=== PATIENT | female | born 1955 | race Caucasian/White ===

== ENCOUNTER 2017-11-28 05:26 | Emergency (ER) | payer MEDICARE, OTHER ==
[~2017-11-28] VITALS: Ht 157.5 cm; Wt 77.3 kg
[2017-11-28] MEDS ORDERED: ondansetron 4mg rapidly disintigrating tab PO ONE (07:00)
[2017-11-28] MEDS ORDERED: benzonatate 100mg capsule PO ONE (07:00)
[2017-11-28] MEDS ORDERED: ipratropium/albuterol 3ml nebule NEB ONE (07:00)
[2017-11-28] MEDS ORDERED: BENZ-16 PO (08:40)
[2017-11-28] MEDS ORDERED: ALBU6.7H INH (08:40)
[2017-11-28] MEDS ORDERED: dexamethasone 4mg tablet PO ONE (08:40)
[2017-11-28 09:02] VITALS: BP 139/92
== END 2017-11-28 09:04 | disposition home or self-care (01) ==
LOC: ER 05:27
DX: J06.9 Acute upper respiratory infection, unspecified (principal); Z88.8 Allergy status to other drugs, medicaments and biological substances
CPT/HCPCS: 71046; 94640; 94760; 99284; J8540

== ENCOUNTER 2017-11-30 05:24 | Inpatient (IN) | payer MEDICARE, OTHER ==
[~2017-11-30] VITALS: Ht 157.5 cm; Wt 79.0 kg
[~2017-11-30 05:24] MED LIST: ALBU6.7H INH; BENZ-16 PO
[2017-11-30] MEDS ORDERED: methylPREDNISolone sod succ 125mg/2ml vial IV ONE ×2 (05:35→06:55)
[2017-11-30] MEDS ORDERED: ipratropium/albuterol 3ml nebule NEB ONE (05:35)
[2017-11-30] MEDS ORDERED: normal saline 1000ML IV soln IVB ONE (05:35)
[2017-11-30] MEDS ORDERED: normal saline 1000ml 1,000 ML IV ONE (05:45)
[2017-11-30] MEDS ORDERED: ketorolac trometh. 30mg/ml inj. IV ONE (05:45)
[2017-11-30] MEDS ORDERED: LORA10TA65 PO (06:01)
[2017-11-30] MEDS ORDERED: CHOL400T14 PO (06:01)
[2017-11-30] MEDS ORDERED: BACL20TA PO (06:01)
[2017-11-30] MEDS ORDERED: DULO60CA45 PO (06:01)
[2017-11-30] MEDS ORDERED: OCRE300V (06:01)
[2017-11-30] MEDS ORDERED: AMPH10TA23 PO (06:01)
[2017-11-30] MEDS ORDERED: APIX5TAB3 PO (06:01)
[2017-11-30] MEDS ORDERED: HYDR-3566 PO (06:01)
[2017-11-30] MEDS ORDERED: ASPI-1265 PO (06:01)
[2017-11-30] MEDS ORDERED: FIORINAL PO ×2 (06:01)
[2017-11-30 06:25] LABS: BASOPHILS % (AUTO) 0.2 % (0-1); EOSINOPHILS # (AUTO) 0.1 X10'3 (0-0.9); EOSINOPHILS % (AUTO) 0.7 % (0-6); HEMATOCRIT 41.7 % (35.0-45.0); HEMOGLOBIN 13.8 g/dl (12.0-16.0); LYMPHOCYTES # (AUTO) 1.5 X10'3 (1.1-4.8); LYMPHOCYTES % (AUTO) 13.6 % (21-51); MEAN CORPUSCULAR HEMOGLOBIN 28.4 PG (27.0-31.0); MEAN CORPUSCULAR HGB CONC 33.1 % (33.0-36.5); MEAN CORPUSCULAR VOLUME 85.9 FL (78-98); MEAN PLATELET VOLUME 8.7 FL (7.4-10.4); MONOCYTES # (AUTO) 0.5 X10'3 (0-0.9); MONOCYTES % (AUTO) 4.8 % (2-12); NEUTROPHILS % (AUTO) 80.7 % (42-75); PLATELET COUNT 249 X10'3 (140-440); RED BLOOD COUNT 4.86 X10'6 (4.20-5.60); RED CELL DISTRIBUTION WIDTH 15.8 % (11.5-14.5); WHITE BLOOD COUNT 11.2 X10'3 (4.5-11.0)
[2017-11-30 06:37] LABS: PARTIAL THROMBOPLASTIN TIME 27 SECONDS (22-32)
[2017-11-30 06:51] LABS: ALANINE AMINOTRANSFERASE 22 U/L (12-78); ALBUMIN 3.2 G/DL (3.4-5.0); ALBUMIN/GLOBULIN RATIO 0.9 (1.1-1.5); ALKALINE PHOSPHATASE 116 IU/L (46-116); ANION GAP 8 (8-16); ASPARTATE AMINO TRANSFERASE 16 U/L (10-37); BILIRUBIN,TOTAL 0.2 MG/DL (0.1-1.0); BLOOD UREA NITROGEN 11 MG/DL (7-18); BUN/CREATININE RATIO 13.8 (6.6-38.0); CALCIUM 8.6 MG/DL (8.5-10.1); CHLORIDE 101 MMOL/L (99-107); GLUCOSE 130 MG/DL (70-104); POTASSIUM 3.9 MMOL/L (3.5-5.1); SODIUM 136 MMOL/L (135-145); TOTAL CARBON DIOXIDE 27.3 MMOL/L (24-32); TOTAL PROTEIN 6.7 G/DL (6.4-8.2); eGFR 73 ML/MIN
[2017-11-30] MEDS ORDERED: albuterol 2.5 MG/3 ML nebule NEB ONE (06:55)
[2017-11-30] MEDS ORDERED: bisacodyl 10mg suppository rectal RC PRN (11:30)
[2017-11-30] MEDS ORDERED: magnesium 2GM in 50ml NS 50 ML IV PRN (11:30)
[2017-11-30] MEDS ORDERED: ondansetron/PF 4mg/2ml inj IV PRN (11:30)
[2017-11-30] MEDS ORDERED: potassium Cl 20 mEq SR tablet PO PRN ×2 (11:30)
[2017-11-30] MEDS ORDERED: magnesium Cl slow-release 64mg tablet PO PRN (11:30)
[2017-11-30] MEDS ORDERED: magnesium 4gm in 100ml NS 100 ML IV PRN (11:30)
[2017-11-30] MEDS ORDERED: magnesium hydroxide 30ml (MOM) UD suspension PO PRN (11:30)
[2017-11-30] MEDS ORDERED: mag hydrox/Alum hydrox/simeth 30ml oral suspension PO PRN (11:30)
[2017-11-30] MEDS ORDERED: potassium Cl 40MEQ/NS 500ml 500 ML IV PRN ×2 (11:30)
[2017-11-30] MEDS ORDERED: butalbital/aspirin/caffeine (Fiorinal) 50/325/40mg capsule PO PRN (11:45)
[2017-11-30] MEDS ORDERED: guaiFENesin 200 MG/10 ML oral syrup UD cup PO PRN (11:45)
[2017-11-30] MEDS: cefTRIAXone 1g/NS 100ml IVPB 100 ML IV SCH (12:22)
[2017-11-30] MEDS: potassium cl 20mEq in 1/2 NS 1,000 ML IV SCH ×2 (12:29→22:17)
[2017-11-30] MEDS ORDERED: butalbital/acetaminophen/caffeine (Fioricet) tablet PO PRN (12:50)
[2017-11-30] MEDS: dextroamphetamine/amphetamine 10mg tablet PO SCH ×2 (13:00→20:00)
[2017-11-30] MEDS ORDERED: BENZ-38 PO (13:44)
[2017-11-30] MEDS: baclofen 10mg tablet PO SCH ×3 (13:57→22:17)
[2017-11-30] MEDS: duloxetine 30mg CAPSULE.DR PO SCH (13:58)
[2017-11-30] MEDS ORDERED: ACETAMINOPHEN PO SCH (14:00)
[2017-11-30] MEDS ORDERED: HYDROCODONE BIT PO SCH (14:00)
[2017-11-30] MEDS: methylPREDNISolone sod succ 125mg/2ml vial IV SCH ×2 (14:21→20:56)
[2017-11-30] MEDS: ipratropium/albuterol 3ml nebule NEB SCH ×3 (15:40→23:29)
[2017-11-30] MEDS: docusate sod 100mg capsule PO SCH (20:57)
[2017-11-30] MEDS: famotidine 20mg tablet PO SCH (20:58)
[2017-11-30] MEDS: apixaban 5mg tablet PO SCH (20:58)
[2017-11-30 21:15] VITALS: BP 150/65
[2017-12-01] VITALS: BP 133/77
[2017-12-01] MEDS: methylPREDNISolone sod succ 125mg/2ml vial IV SCH ×4 (02:24→16:20)
[2017-12-01] MEDS: ipratropium/albuterol 3ml nebule NEB SCH ×5 (03:44→20:01)
[2017-12-01 06:13] LABS: BASOPHILS % (AUTO) 0.1 % (0-1); EOSINOPHILS # (AUTO) 0.1 X10'3 (0-0.9); EOSINOPHILS % (AUTO) 1.2 % (0-6); HEMATOCRIT 39.7 % (35.0-45.0); HEMOGLOBIN 13.5 g/dl (12.0-16.0); LYMPHOCYTES # (AUTO) 1.5 X10'3 (1.1-4.8); LYMPHOCYTES % (AUTO) 14.8 % (21-51); MEAN CORPUSCULAR HEMOGLOBIN 29.2 PG (27.0-31.0); MEAN CORPUSCULAR HGB CONC 33.9 % (33.0-36.5); MEAN CORPUSCULAR VOLUME 86.1 FL (78-98); MEAN PLATELET VOLUME 8.6 FL (7.4-10.4); MONOCYTES # (AUTO) 0.3 X10'3 (0-0.9); MONOCYTES % (AUTO) 2.6 % (2-12); NEUTROPHILS # (AUTO) 8.4 X10'3 (1.8-7.7); NEUTROPHILS % (AUTO) 81.3 % (42-75); PLATELET COUNT 280 X10'3 (140-440); RED BLOOD COUNT 4.61 X10'6 (4.20-5.60); RED CELL DISTRIBUTION WIDTH 16.2 % (11.5-14.5); WHITE BLOOD COUNT 10.3 X10'3 (4.5-11.0)
[2017-12-01 06:37] LABS: ALANINE AMINOTRANSFERASE 21 U/L (12-78); ALBUMIN 3.1 G/DL (3.4-5.0); ALBUMIN/GLOBULIN RATIO 0.8 (1.1-1.5); ALKALINE PHOSPHATASE 116 IU/L (46-116); ANION GAP 8 (8-16); ASPARTATE AMINO TRANSFERASE 15 U/L (10-37); BILIRUBIN,TOTAL 0.2 MG/DL (0.1-1.0); BLOOD UREA NITROGEN 10 MG/DL (7-18); BUN/CREATININE RATIO 11.5 (6.6-38.0); CHLORIDE 108 MMOL/L (99-107); CREATININE 0.87 MG/DL (0.40-0.90); GLUCOSE 144 MG/DL (70-104); MAGNESIUM 2.2 MG/DL (1.5-2.4); POTASSIUM 3.9 MMOL/L (3.5-5.1); SODIUM 145 MMOL/L (135-145); TOTAL CARBON DIOXIDE 28.9 MMOL/L (24-32); TOTAL PROTEIN 6.9 G/DL (6.4-8.2); eGFR 66 ML/MIN
[2017-12-01] MEDS: potassium cl 20mEq in 1/2 NS 1,000 ML IV SCH ×2 (07:26→13:45)
[2017-12-01] MEDS: dextroamphetamine/amphetamine 10mg tablet PO SCH ×2 (08:00→20:00)
[2017-12-01] MEDS: K and/or MAG REPLACEMENT MC SCH (08:00)
[2017-12-01] MEDS: cefTRIAXone 1g/NS 100ml IVPB 100 ML IV SCH (08:05)
[2017-12-01] MEDS: loratadine 10mg tablet PO SCH (08:09)
[2017-12-01] MEDS: aspirin 81mg tab.chew PO SCH (08:09)
[2017-12-01] MEDS: duloxetine 30mg CAPSULE.DR PO SCH (08:10)
[2017-12-01] MEDS: docusate sod 100mg capsule PO SCH ×2 (08:10→20:43)
[2017-12-01] MEDS: apixaban 5mg tablet PO SCH ×2 (08:10→20:41)
[2017-12-01] MEDS: baclofen 10mg tablet PO SCH ×4 (08:10→21:00)
[2017-12-01] MEDS: famotidine 20mg tablet PO SCH ×2 (08:11→20:43)
[2017-12-01] MEDS: vitamin D (cholecalciferol) 1,000 unit tablet PO SCH (08:13)
[2017-12-01 08:28] VITALS: BP 139/79
[2017-12-01 11:23] VITALS: BP 131/64
[2017-12-01 20:00] VITALS: BP 142/82
[2017-12-01] MEDS ORDERED: HYDROcodone/acetaminophen 10/325mg tab PO PRN (20:30)
[2017-12-02] VITALS: BP 138/76
[2017-12-02] MEDS: ipratropium/albuterol 3ml nebule NEB SCH ×7 (00:05→23:31)
[2017-12-02] MEDS: methylPREDNISolone sod succ 125mg/2ml vial IV SCH ×3 (01:15→17:13)
[2017-12-02 05:57] LABS: ALANINE AMINOTRANSFERASE 23 U/L (12-78); ALBUMIN 2.9 G/DL (3.4-5.0); ALBUMIN/GLOBULIN RATIO 0.8 (1.1-1.5); ALKALINE PHOSPHATASE 102 IU/L (46-116); ANION GAP 8 (8-16); ASPARTATE AMINO TRANSFERASE 13 U/L (10-37); BILIRUBIN,TOTAL 0.1 MG/DL (0.1-1.0); BLOOD UREA NITROGEN 18 MG/DL (7-18); BUN/CREATININE RATIO 24.3 (6.6-38.0); CALCIUM 8.9 MG/DL (8.5-10.1); CHLORIDE 107 MMOL/L (99-107); CREATININE 0.74 MG/DL (0.40-0.90); GLUCOSE 129 MG/DL (70-104); MAGNESIUM 2.2 MG/DL (1.5-2.4); POTASSIUM 4.5 MMOL/L (3.5-5.1); SODIUM 143 MMOL/L (135-145); TOTAL CARBON DIOXIDE 28.4 MMOL/L (24-32); TOTAL PROTEIN 6.4 G/DL (6.4-8.2); eGFR 80 ML/MIN
[2017-12-02] MEDS: potassium cl 20mEq in 1/2 NS 1,000 ML IV SCH ×3 (07:10→23:26)
[2017-12-02 07:41] VITALS: BP 141/79
[2017-12-02] MEDS ORDERED: CefTRIAXone/D5W-Rocephin 1gm 50 ML IV SCH (08:00)
[2017-12-02] MEDS: K and/or MAG REPLACEMENT MC SCH (08:00)
[2017-12-02] MEDS: duloxetine 30mg CAPSULE.DR PO SCH (09:08)
[2017-12-02] MEDS: loratadine 10mg tablet PO SCH (09:08)
[2017-12-02] MEDS: aspirin 81mg tab.chew PO SCH (09:09)
[2017-12-02] MEDS: docusate sod 100mg capsule PO SCH ×2 (09:09→20:46)
[2017-12-02] MEDS: apixaban 5mg tablet PO SCH ×2 (09:10→20:46)
[2017-12-02] MEDS: dextroamphetamine/amphetamine 10mg tablet PO SCH ×2 (09:10→20:00)
[2017-12-02] MEDS: famotidine 20mg tablet PO SCH ×2 (09:10→20:47)
[2017-12-02] MEDS: baclofen 10mg tablet PO SCH ×4 (09:11→20:46)
[2017-12-02] MEDS: vitamin D (cholecalciferol) 1,000 unit tablet PO SCH (09:13)
[2017-12-02 11:00] VITALS: BP 153/83
[2017-12-02 20:00] VITALS: BP 147/84
[2017-12-02] MEDS: lactobacillus rhamnosus 10,000 MMU CELLS/CAPSULE PO SCH (20:45)
[2017-12-03] VITALS: BP 145/85
[2017-12-03] MEDS: methylPREDNISolone sod succ 125mg/2ml vial IV SCH ×3 (00:42→17:02)
[2017-12-03] MEDS ORDERED: diphenhydrAMINE 25mg capsule PO ONE (01:00)
[2017-12-03] MEDS: ipratropium/albuterol 3ml nebule NEB SCH ×6 (03:00→23:00)
[2017-12-03 06:08] LABS: ALANINE AMINOTRANSFERASE 50 U/L (12-78); ALBUMIN 2.9 G/DL (3.4-5.0); ALBUMIN/GLOBULIN RATIO 0.9 (1.1-1.5); ALKALINE PHOSPHATASE 100 IU/L (46-116); ANION GAP 6 (8-16); ASPARTATE AMINO TRANSFERASE 24 U/L (10-37); BILIRUBIN,TOTAL 0.2 MG/DL (0.1-1.0); BLOOD UREA NITROGEN 15 MG/DL (7-18); BUN/CREATININE RATIO 20.8 (6.6-38.0); CALCIUM 8.1 MG/DL (8.5-10.1); CHLORIDE 108 MMOL/L (99-107); CREATININE 0.72 MG/DL (0.40-0.90); GLUCOSE 136 MG/DL (70-104); MAGNESIUM 2.4 MG/DL (1.5-2.4); POTASSIUM 4.1 MMOL/L (3.5-5.1); SODIUM 144 MMOL/L (135-145); TOTAL CARBON DIOXIDE 29.8 MMOL/L (24-32); TOTAL PROTEIN 6.1 G/DL (6.4-8.2); eGFR 83 ML/MIN
[2017-12-03 07:00] VITALS: BP 168/88
[2017-12-03] MEDS: docusate sod 100mg capsule PO SCH ×2 (08:00→20:00)
[2017-12-03] MEDS: K and/or MAG REPLACEMENT MC SCH (08:00)
[2017-12-03] MEDS: dextroamphetamine/amphetamine 10mg tablet PO SCH ×2 (08:35→20:00)
[2017-12-03] MEDS: vitamin D (cholecalciferol) 1,000 unit tablet PO SCH (08:36)
[2017-12-03] MEDS: baclofen 10mg tablet PO SCH ×4 (08:38→22:25)
[2017-12-03] MEDS: aspirin 81mg tab.chew PO SCH (08:38)
[2017-12-03] MEDS: lactobacillus rhamnosus 10,000 MMU CELLS/CAPSULE PO SCH ×2 (08:39→22:25)
[2017-12-03] MEDS: famotidine 20mg tablet PO SCH ×2 (08:40→22:24)
[2017-12-03] MEDS: pantoprazole 40 MG vial IV SCH (08:41)
[2017-12-03] MEDS: duloxetine 30mg CAPSULE.DR PO SCH (08:41)
[2017-12-03] MEDS: levoFLOXACIN-Levaquin 750MG/D5 150 ML IV SCH (08:42)
[2017-12-03] MEDS: apixaban 5mg tablet PO SCH ×2 (08:48→22:24)
[2017-12-03] MEDS: loratadine 10mg tablet PO SCH (08:54)
[2017-12-03 11:00] VITALS: BP 168/95
[2017-12-03] MEDS: CefTRIAXone inj 1,000 MG in normal saline 100ml IV soln 100 ML IV SCH (11:11)
[2017-12-03] MEDS: potassium cl 20mEq in 1/2 NS 1,000 ML IV SCH (11:12)
[2017-12-03 19:00] VITALS: BP 129/82
[2017-12-04] VITALS: BP 152/86
[2017-12-04] MEDS: methylPREDNISolone sod succ 125mg/2ml vial IV SCH ×3 (01:06→16:58)
[2017-12-04] MEDS: potassium cl 20mEq in 1/2 NS 1,000 ML IV SCH ×2 (01:12→05:26)
[2017-12-04] MEDS: ipratropium/albuterol 3ml nebule NEB SCH ×3 (03:00→11:00)
[2017-12-04 06:28] LABS: ALANINE AMINOTRANSFERASE 46 U/L (12-78); ALBUMIN 3.1 G/DL (3.4-5.0); ALBUMIN/GLOBULIN RATIO 0.9 (1.1-1.5); ALKALINE PHOSPHATASE 106 IU/L (46-116); ANION GAP 9 (8-16); ASPARTATE AMINO TRANSFERASE 18 U/L (10-37); BILIRUBIN,TOTAL 0.2 MG/DL (0.1-1.0); BLOOD UREA NITROGEN 13 MG/DL (7-18); BUN/CREATININE RATIO 19.1 (6.6-38.0); CALCIUM 9.1 MG/DL (8.5-10.1); CHLORIDE 107 MMOL/L (99-107); CREATININE 0.68 MG/DL (0.40-0.90); GLUCOSE 126 MG/DL (70-104); MAGNESIUM 2.5 MG/DL (1.5-2.4); POTASSIUM 4.5 MMOL/L (3.5-5.1); SODIUM 143 MMOL/L (135-145); TOTAL CARBON DIOXIDE 27.5 MMOL/L (24-32); TOTAL PROTEIN 6.6 G/DL (6.4-8.2); eGFR 88 ML/MIN
[2017-12-04 08:00] VITALS: BP 156/87
[2017-12-04] MEDS: K and/or MAG REPLACEMENT MC SCH (08:00)
[2017-12-04] MEDS: levoFLOXACIN-Levaquin 750MG/D5 150 ML IV SCH (08:33)
[2017-12-04] MEDS: vitamin D (cholecalciferol) 1,000 unit tablet PO SCH (08:34)
[2017-12-04] MEDS: dextroamphetamine/amphetamine 10mg tablet PO SCH (08:34)
[2017-12-04] MEDS: duloxetine 30mg CAPSULE.DR PO SCH (08:35)
[2017-12-04] MEDS: baclofen 10mg tablet PO SCH ×3 (08:36→17:00)
[2017-12-04] MEDS: docusate sod 100mg capsule PO SCH (08:36)
[2017-12-04] MEDS: loratadine 10mg tablet PO SCH (08:36)
[2017-12-04] MEDS: lactobacillus rhamnosus 10,000 MMU CELLS/CAPSULE PO SCH (08:37)
[2017-12-04] MEDS: aspirin 81mg tab.chew PO SCH (08:37)
[2017-12-04] MEDS: apixaban 5mg tablet PO SCH (08:37)
[2017-12-04] MEDS: famotidine 20mg tablet PO SCH (08:37)
[2017-12-04] MEDS: pantoprazole 40 MG vial IV SCH (08:40)
[2017-12-04] MEDS: CefTRIAXone inj 1,000 MG in normal saline 100ml IV soln 100 ML IV SCH (09:54)
[2017-12-04 11:00] VITALS: BP 140/82
[2017-12-04] MEDS ORDERED: iohexol 350MG/ML 100ml bottle IV ONE ×2 (14:40→15:18)
== END 2017-12-04 19:30 | disposition home or self-care (01) | DRG 193 ==
LOC: ER 05:25 → ED HOLD 09:13 → UNDOADMIN 09:13 → EDBEDREQTM 20:29 → MED 3N 21:00
PROVIDERS: ADMIT Internal Medicine; ATTEND Obstetrics & Gynecology Obstetrics
PROC: B32T1ZZ Computerized Tomography (CT Scan) of Left Pulmonary Artery using Low Osmolar Contrast (ICD-10-PCS; principal; 2017-12-04)
PROC: B3201ZZ Computerized Tomography (CT Scan) of Thoracic Aorta using Low Osmolar Contrast (ICD-10-PCS; 2017-12-04)
PROC: B32S1ZZ Computerized Tomography (CT Scan) of Right Pulmonary Artery using Low Osmolar Contrast (ICD-10-PCS; 2017-12-04)
DX: J18.9 Pneumonia, unspecified organism (principal); J96.00 Acute respiratory failure, unspecified whether with hypoxia or hypercapnia; D68.2 Hereditary deficiency of other clotting factors; G35 Multiple sclerosis; M21.372 Foot drop, left foot; D35.02 Benign neoplasm of left adrenal gland; J11.1 Influenza due to unidentified influenza virus with other respiratory manifestations; J45.909 Unspecified asthma, uncomplicated; Z88.6 Allergy status to analgesic agent; Z95.820 Peripheral vascular angioplasty status with implants and grafts; Z79.01 Long term (current) use of anticoagulants; Z86.718 Personal history of other venous thrombosis and embolism; Z86.19 Personal history of other infectious and parasitic diseases
CPT/HCPCS: 36415; 71045; 71275; 80053; 83605; 83735; 83880; 84484; 85025; 85610; 85730; 87040; 87070; 87502; 87503; 93005; 94640; 94760; 96361; 96374; 96375; 99285; C9113; J0696; J1885; J1956; J2405; J2930; J7030; Q0163; Q9967